=== PATIENT | female | born 1990 ===

== ENCOUNTER 2018-04-01 19:09 | Emergency (ER) | payer OTHER ==
[2018-04-01 19:23] VITALS: BP 142/89; PULSE 112; RESP 20; TEMP 98.7; O2SAT 100
--- NOTE | 2018-04-01 19:46 | C.PDOC ---
History Of Present Illness 27 y/o female presents to the ER complaining of intermittent runny nose which has been present for the past few days. Patient states that she has associated SOB. Patient is also complaining of intermittent pruritic skin rash which she feels might be due to "stress." She notes that she did not take any medications. Patient currently denies having fever, cough, SOB, and headache. Time Seen by Provider: 04/01/18 19:28 Chief Complaint (Nursing): Cough, Cold, Congestion History Per: Patient History/Exam Limitations: no limitations Onset/Duration Of Symptoms: Days Current Symptoms Are (Timing): Still Present Severity: Moderate Past Medical History Reviewed: Historical Data, Nursing Documentation, Vital Signs Vital Signs: Last Vital Signs Temp 98.7 F 04/01/18 19:16 Pulse 112 H 04/01/18 19:16 Resp 20 04/01/18 19:16 BP 142/89 04/01/18 19:16 Pulse Ox 100 04/01/18 21:21 - Medical History PMH: Asthma ("I used to have it, not on medicine") Surgical History: No Surg Hx Family History: States: No Known Family Hx - Social History Hx Alcohol Use: Yes Hx Substance Use: No - Immunization History Hx Tetanus Toxoid Vaccination: No Hx Influenza Vaccination: No Hx Pneumococcal Vaccination: No Review Of Systems Except As Marked, All Systems Reviewed And Found Negative. Constitutional: Negative for: Fever, Chills ENT: Positive for: Nose Discharge (runny nose) Respiratory: Negative for: Shortness of Breath Skin: Positive for: Rash Physical Exam - Physical Exam Appears: Non-toxic, No Acute Distress Skin: Normal Color, Warm, Dry, No Rash Head: Atraumatic, Normacephalic Eye(s): bilateral: Normal Inspection Nose: Normal Oral Mucosa: Moist Throat: Normal, No Erythema, No Exudate Neck: Supple Chest: Symmetrical Cardiovascular: Rhythm Regular Respiratory: Normal Breath Sounds, No Rales, No Rhonchi, No Wheezing Neurological/Psych: Oriented x3, Normal Speech ED Course And Treatment O2 Sat by Pulse Oximetry: 100 (RA) Pulse Ox Interpretation: Normal Progress Note: Patient remains stable in ED in NAD. Pt has been discharged and instructed to follow up with PMD or medical clinic. Disposition Counseled Patient/Family Regarding: Diagnosis, Need For Followup - Disposition Referrals: [facility] [Outside] Disposition: HOME/ ROUTINE Disposition Time: 19:42 Condition: STABLE Additional Instructions: Please follow up with PMD or in clinic Use afrin nasal spray as needed Use zyrtec OTC once daily for itching and allergy Return to ER if worse Prescriptions: Cetirizine HCl [Zyrtec] 10 mg PO DAILY #14 capsule Forms: [facility] (Tunisian), General Discharge Instructions - Clinical Impression Clinical Impression: Allergic rhinitis - PA / CCNA / Resident Statement MD/DO has reviewed & agrees with the documentation as recorded. - Scribe Statement The provider has reviewed the documentation as recorded by the Shakeel Chowdhury Provider Attestation All medical record entries made by the Shakeel were at my direction and personally dictated by me. I have reviewed the chart and agree that the record accurately reflects my personal performance of the history, physical exam, medical decision making, and the department course for this patient. I have also personally directed, reviewed, and agree with the discharge instructions and disposition.
== END 2018-04-01 19:59 | disposition home or self-care (01) ==
LOC: C.ER 19:09
DX: J30.9 Allergic rhinitis, unspecified (principal)